=== PATIENT | female | born 1955 | race Caucasian/White ===

== ENCOUNTER → 2017-03-26 | Outpatient (CLI) | payer BC ==
[~2017-03-26] MED LIST: ADVIL200 MG PO; CITRACAL + D 311 TAB PO; CLARITIN 1010 MG/TAB PO; CO ENZYME Q-1050 MG PO; DEXILANT60 MG PO; ELMIRON 10100 MG/CA1 PO; LUTEIN20 MG PO; MAGNESIUM200 MG PO; MULTIVITAMIN1 SGL PO; TOPROL XL 25MG25 MG PO; TOPROL XL 50MG50 MG PO; TYLENOL EXTRA500 M1 PO; VITAMIN C500 MG PO; ZINC15 M1 PO
== END ==
LOC: MC.RAD 10:00
DX: Z12.31 Encounter for screening mammogram for malignant neoplasm of breast (principal)

== ENCOUNTER 2017-04-14 09:06 | Outpatient (RCR) | payer BC | END 2017-07-13 | disposition still patient (30) | LOC: WSST | DX: J38.3 Other diseases of vocal cords (principal) ==

== ENCOUNTER 2017-08-06 13:15 | Outpatient (RCR) | payer BC | END 2017-08-08 11:22 | disposition home or self-care (01) | LOC: MKS.ESL.PT 13:15 | DX: M54.5 Low back pain (principal); G89.28 Other chronic postprocedural pain ==

== ENCOUNTER → 2018-03-20 | Outpatient (CLI) | payer BC | LOC: MC.RAD 09:58 | DX: Z12.31 Encounter for screening mammogram for malignant neoplasm of breast (principal) ==

== ENCOUNTER 2018-06-03 10:00 | Outpatient (RCR) | payer BC | END 2018-06-04 11:14 | disposition home or self-care (01) | LOC: MKS.ESL.PT 10:00 | DX: M54.42 Lumbago with sciatica, left side (principal) ==

== ENCOUNTER → 2019-09-30 | Outpatient (CLI) | payer BC ==
[2019-09-30 13:55] LABS: HEMATOCRIT 40.8 % (37.0-47.0); HEMOGLOBIN 13.8 g/dl (12.5-16.0); MEAN CELL VOLUME 92 fl (80.0-100.0); MEAN CORPUSCULAR HEMOGLOBIN 31 pg (27.0-31.0); MEAN CORPUSCULAR HGB CONC 34 g/dl (33.0-37.0); MEAN PLATELET VOLUME 10.2 fl (7.4-10.4); PLATELET COUNT 250 K/mm3 (130-400); RED BLOOD COUNT 4.46 M/mm3 (4.10-5.30); REDCELL DISTRIBUTION WIDTH-CV 12.1 % (11.5-14.5)
[2019-09-30 14:20] LABS: ERYTHROCYTE SEDIMENTATION RATE 4 mm/hr (0-30)
== END ==
LOC: COL.LAB 13:14
PROVIDERS: Orthopaedic Surgery
DX: M25.561 Pain in right knee (principal); Z96.651 Presence of right artificial knee joint

== ENCOUNTER 2019-10-15 10:34 | Outpatient (RCR) | payer BC | END 2020-01-13 | disposition home or self-care (01) | LOC: MKS.ESL.PT | DX: M25.561 Pain in right knee (principal); Z96.651 Presence of right artificial knee joint ==

== ENCOUNTER → 2020-04-06 | Outpatient (CLI) | payer BC | LOC: MC.RAD 15:19 | DX: Z12.31 Encounter for screening mammogram for malignant neoplasm of breast (principal); N64.89 Other specified disorders of breast ==

== ENCOUNTER → 2020-04-13 | Outpatient (CLI) | payer BC | LOC: MC.RAD 13:00 | DX: N64.89 Other specified disorders of breast (principal); N63.10 Unspecified lump in the right breast, unspecified quadrant ==

== ENCOUNTER 2020-08-16 13:28 | Outpatient (RCR) | payer BC | END 2020-11-14 | disposition home or self-care (01) | LOC: MKS.ESL.PT | DX: S29.012A Strain of muscle and tendon of back wall of thorax, initial encounter (principal) ==

== ENCOUNTER → 2021-01-24 | Outpatient (CLI) | payer BC | LOC: COL.RAD 07:58 | DX: M48.062 Spinal stenosis, lumbar region with neurogenic claudication (principal); M47.816 Spondylosis without myelopathy or radiculopathy, lumbar region; Z98.1 Arthrodesis status ==

== ENCOUNTER 2021-04-11 10:30 | Outpatient (RCR) | payer BC | END 2021-04-16 09:38 | disposition home or self-care (01) | LOC: WSPT 10:30 | DX: M54.9 Dorsalgia, unspecified (principal); G89.29 Other chronic pain ==

== ENCOUNTER → 2021-04-26 | Outpatient (CLI) | payer BC | LOC: MC.RAD 10:30 | DX: Z12.31 Encounter for screening mammogram for malignant neoplasm of breast (principal) ==

== ENCOUNTER → 2021-06-15 | Outpatient (CLI) | payer BC | LOC: COL.RAD 14:54 | DX: G31.9 Degenerative disease of nervous system, unspecified (principal); M31.6 Other giant cell arteritis; G44.1 Vascular headache, not elsewhere classified ==

== ENCOUNTER → 2021-11-12 14:42 | Outpatient (RCR) | payer BC | END | disposition home or self-care (01) | LOC: MKS.ESL.PT 11-15 13:30 | DX: S29.019A Strain of muscle and tendon of unspecified wall of thorax, initial encounter (principal) ==

== ENCOUNTER → 2022-10-25 | Outpatient (RCR) | payer BC | END | disposition home or self-care (01) | LOC: MKS.ESL.PT | DX: M54.2 Cervicalgia (principal); M79.601 Pain in right arm ==

== ENCOUNTER 2022-11-15 08:10 | Outpatient (RCR) | payer BC | END 2022-11-24 | disposition home or self-care (01) | LOC: MKS.ESL.PT | DX: M54.2 Cervicalgia (principal); M79.621 Pain in right upper arm; M79.644 Pain in right finger(s) ==

== ENCOUNTER → 2023-05-29 | Outpatient (CLI) | payer BC | LOC: CANSCHCLI → MC.RAD 16:00 | DX: Z12.31 Encounter for screening mammogram for malignant neoplasm of breast (principal) ==

== ENCOUNTER 2023-08-26 10:30 | Outpatient (RCR) | payer BC | END 2023-08-27 | disposition home or self-care (01) | LOC: PT.GENESIS | DX: M54.2 Cervicalgia (principal); M79.601 Pain in right arm ==

== ENCOUNTER 2023-09-15 13:45 | Outpatient (RCR) | payer BC | END 2023-09-25 | disposition home or self-care (01) | LOC: PT.GENESIS | DX: M54.2 Cervicalgia (principal); M79.601 Pain in right arm ==

== ENCOUNTER 2023-10-03 14:00 | Outpatient (RCR) | payer BC | END 2023-10-26 | disposition home or self-care (01) | LOC: PT.GENESIS | DX: M54.2 Cervicalgia (principal); M79.601 Pain in right arm ==